=== PATIENT | female | born 1980 | race Caucasian/White ===

== ENCOUNTER 2018-12-06 10:43 | Observation (INO) ==
--- NOTE | 2018-12-06 11:39 | Emergency Department Note ---
Disposition Clinical Impression: Left renal stone, Left flank pain UTI (urinary tract infection) Qualifiers: Urinary tract infection type: site unspecified Hematuria presence: with hematuria Qualified Code(s): N39.0 - Urinary tract infection, site not specified Disposition: Admitted As Inpatient Condition: Undetermined Referrals: Monica Hunter CNP [Primary Care Provider] - Forms: ED Satisfaction Letter Time of Disposition: 13:15 Back Pain HPI - General Chief Complaint: ED Back Pain/Injury Stated Complaint: Back Pain Time Seen by Provider: 12/06/18 11:19 Source: patient Mode of arrival: private vehicle Limitations: no limitations Nursing Notes Reviewed: Yes Vital Signs Reviewed: Yes - History of Present Illness HPI Narrative: Patient is a 38 year old female with past medical history of kidney stone, presenting with chief complaint of left flank pain. States she woke up this morning with left low back pain, radiating into the side and left groin. Pain is constant dull and has waves of sharp pain. She has nausea but no vomiting. She cannot find a position of comfort. She took ibuprofen without improvement. Normal BM. Denies fevers, dysuria, hematuria, vaginal discharge. - Related Data Home Medications Medication Instructions Recorded Confirmed Minocycline [Minocin] 100 mg PO ONCE PRN 12/06/18 12/06/18 Propranolol [Inderal] 10 mg PO ONCE 12/06/18 12/06/18 Allergies Allergy/AdvReac Type Severity Reaction Status Date / Time Erythromycin Base Allergy See Verified 12/06/18 10:48 Comments All systems ED: reviewed and negative except as stated. Review of Systems: As Per HPI Constitutional: Denies: fever, chills Cardiovascular: Denies: chest pain, palpitations Respiratory: Denies: cough, dyspnea Gastrointestinal: Reports: abdominal pain, nausea. Denies: vomiting, diarrhea Genitourinary: Denies: dysuria, hematuria Musculoskeletal: Reports: back pain Neurological: Denies: headache, weakness Past Medical History - Past Medical History Attestation: Yes The following information was validated with the patient. Source: patient Medical history: Reports: kidney stones Psychiatric history: Reports: no psych history - Social History Smoking Status: Never smoker Alcohol use: Reports: none Drug use: Reports: none Physical Exam - General Limitations: no limitations General appearance: alert, in no apparent distress - Head Head exam: atraumatic, normocephalic - Eye Eye exam: Present: normal appearance, EOMI - ENT ENT exam: normal exam, normal oropharynx - Neck Neck exam: Present: normal inspection, trachea midline - Chest Chest inspection: Present: normal inspection, symmetric chest wall rise - Respiratory Respiratory exam: Present: normal lung sounds bilaterally. Absent: respiratory distress, wheezes - Cardiovascular Cardiovascular exam: Present: regular rate, normal rhythm, normal heart sounds - Abdominal Exam Abdominal exam: Present: soft, Non-Tender. Absent: distention, guarding, rebound - Extremities Exam Extremities exam: Present: normal inspection, normal capillary refill - Back Exam Back exam: Present: CVA tenderness (L) - Neurological Exam Neurological exam: Present: alert, oriented X3 - Psychiatric Psychiatric exam: Present: normal affect, normal mood - Skin Skin exam: Present: warm, dry. Absent: diaphoresis, pallor Course Vital Signs Temperature 98.5 F 12/06/18 10:46 Pulse Rate 89 12/06/18 10:46 Respiratory Rate 16 12/06/18 10:46 Blood Pressure 166/103 12/06/18 10:46 O2 Sat by Pulse Oximetry 99 12/06/18 10:46 Temperature 98.5 F 12/06/18 10:46 Pulse Rate 71 12/06/18 12:53 Respiratory Rate 16 12/06/18 12:53 Blood Pressure 158/88 12/06/18 12:53 O2 Sat by Pulse Oximetry 100 12/06/18 12:53 Oxygen Delivery Oxygen Delivery Room Air Back Pain/Injury - MDM Narrative Medical decision making narrative: Patient is presenting with left flank pain. Suspect that the patient has a kidney stone. We will evaluate further and obtain urinalysis, CBC, BMP, CT abdomen and pelvis without IV or oral contrast. We will initially give the patient Toradol and Zofran for symptoms and reevaluate. 12:30 Patient has leukocytosis. She is afebrile. Normal BUN and creatinine. CT results shows a 6mm obstructing calculus at the left uteropelvic junction causing mild hydronephrosis. She also has bilateral nonobstructing nephrolithiasis up to 5mm. She also has a urinary tract infection. Blood cultures will be obtained. She will be given a dose of IV Rocephin, IV fluids. We will give her fentanyl for pain. Urology paged for consultation and will admit to hospitalist. 12:35 Discussed with Urology, Dr. Davis who is agreeable to plan of care. Hospitalist paged for admission. 13:[address] Vargas, hospitalist, who accepts admission. - Medical Records Medical records reviewed: Yes I reviewed the patient's medical records. - Lab Data Lab results reviewed: Yes I reviewed the patient's lab results. Result diagrams: 12/06/18 11:25 12/06/18 11:25 Lab Results 12/06/18 12/06/18 12/06/18 Range/Units 11:25 11:25 11:25 WBC 12.1 H (4.3-11.1) K/mcL RBC 5.07 H (3.82-4.97) M/mcL Hgb 15.1 (11.5-15.4) g/dL Hct 44.9 (35.3-44.9) % MCV 88.6 (83.0-100.0) fL MCH 29.8 (28.0-33.3) pg MCHC 33.6 (31.6-35.5) g/dL RDW 11.9 (11.5-14.5) % Plt Count 249 (140-400) K/mcL MPV 11.4 (9.4-12.4) fL Immature Gran % 0.4 (0-4) % Seg Neutrophils % 89.6 % Lymphocytes % 7.1 % Monocytes % 2.3 % Eosinophils % 0.1 % Basophils % 0.5 % Neutrophils # 10.8 H (1.6-8.9) K/mcL Lymphocytes # 0.9 (0.6-4.6) K/mcL Monocytes # 0.3 (0.0-1.3) K/mcL Eosinophils # 0.0 (0.0-0.6) K/mcL Basophils # 0.1 (0.0-0.2) K/mcL Sodium (136-145) mEq/L Potassium (3.5-5.1) mEq/L Chloride (98-107) mEq/L Carbon Dioxide (23-29) mEq/L BUN (6-20) mg/dL Creatinine (0.60-1.20) mg/dL Est GFR ( Amer) (> 60) Est GFR (Non-Af Amer) (> 60) BUN/Creatinine Ratio (6-26) Glucose (70-105) mg/dL Calculated Osmolality (280-300) Calcium (8.6-10.3) mg/dL Urine Color Yellow (Yellow) Urine Clarity Cloudy A (Clear) Urine pH 5.5 (5.0-8.0) pH Units Ur Specific [place] 1.023 (1.010-1.025) Urine Protein Trace (Neg-Trace) mg/dL Urine Glucose (UA) Normal (Normal) mg/dL Urine Ketones Trace H (Negative) mg/dL Urine Blood Large H (Negative) Urine Nitrite Negative (Negative) Urine Bilirubin Negative (Negative) Urine Urobilinogen Normal (Normal) mg/dL Ur Leukocyte Esterase Moderate H (Negative) Urine Microscopic RBC TNTC H (0-3) per hpf Urine Microscopic WBC 15-30 H (0-3) per hpf Ur Squamous Epith Cells Many H (None-Few) per lpf Urine Bacteria Moderate H (None-Few) per hpf Hyaline Casts None Seen (None-Few) per lpf Ur Culture Indicated? YES A (NO) Urine Test Negative (Negative) 12/06/18 Range/Units 11:25 WBC (4.3-11.1) K/mcL RBC (3.82-4.97) M/mcL Hgb (11.5-15.4) g/dL Hct (35.3-44.9) % MCV (83.0-100.0) fL MCH (28.0-33.3) pg MCHC (31.6-35.5) g/dL RDW (11.5-14.5) % Plt Count (140-400) K/mcL MPV (9.4-12.4) fL Immature Gran % (0-4) % Seg Neutrophils % % Lymphocytes % % Monocytes % % Eosinophils % % Basophils % % Neutrophils # (1.6-8.9) K/mcL Lymphocytes # (0.6-4.6) K/mcL Monocytes # (0.0-1.3) K/mcL Eosinophils # (0.0-0.6) K/mcL Basophils # (0.0-0.2) K/mcL Sodium 135 L (136-145) mEq/L Potassium 4.2 (3.5-5.1) mEq/L Chloride 106 (98-107) mEq/L Carbon Dioxide 26 (23-29) mEq/L BUN 14 (6-20) mg/dL Creatinine 0.74 (0.60-1.20) mg/dL Est GFR ( Amer) > 60 (> 60) Est GFR (Non-Af Amer) > 60 (> 60) BUN/Creatinine Ratio 19 (6-26) Glucose 147 H (70-105) mg/dL Calculated Osmolality 283 (280-300) Calcium 9.8 (8.6-10.3) mg/dL Urine Color (Yellow) Urine Clarity (Clear) Urine pH (5.0-8.0) pH Units Ur Specific [place] (1.010-1.025) Urine Protein (Neg-Trace) mg/dL Urine Glucose (UA) (Normal) mg/dL Urine Ketones (Negative) mg/dL Urine Blood (Negative) Urine Nitrite (Negative) Urine Bilirubin (Negative) Urine Urobilinogen (Normal) mg/dL Ur Leukocyte Esterase (Negative) Urine Microscopic RBC (0-3) per hpf Urine Microscopic WBC (0-3) per hpf Ur Squamous Epith Cells (None-Few) per lpf Urine Bacteria (None-Few) per hpf Hyaline Casts (None-Few) per lpf Ur Culture Indicated? (NO) Urine Test (Negative) - Radiology Data Radiology results reviewed: Yes I reviewed the patient's radiology results. Abdomen/Pelvis CT 12/06/18 11:41 IMPRESSION: 1. There is a 6 mm obstructing calculus at the left uteropelvic junction causing mild hydronephrosis. 2. Bilateral nonobstructing nephrolithiasis up to 5 mm in size more pronounced on the left side. 3. Hepatic steatosis. D/ / Raul Dawn MD / Raul Dawn MD Interpreting Provider: Raul Dawn MD
[2018-12-06] MEDS ORDERED: Ondansetron 4 MG/2 ML VIAL IVP ONE (11:40)
[2018-12-06] MEDS ORDERED: Ketorolac 15 MG/ML VIAL IM ONE ×2 (11:40→11:55)
[2018-12-06 11:46] LABS: Bilirubin,Urine Negative (Negative); Blood,Urine Large (Negative); Clarity,Urine Cloudy (Clear); Color,Urine Yellow (Yellow); Glucose,Urine (UA) Normal (Normal); Ketones,Urine Trace mg/dL (Negative); Leukocyte Esterase,Urine Moderate (Negative); Nitrite,Urine Negative (Negative); PH,Urine 5.5 pH Units (5.0-8.0); Protein,Urine Trace mg/dL (Neg-Trace); Specific Gravity,Urine 1.023 (1.010-1.025); Urobilinogen,Urine Normal (Normal)
[2018-12-06 11:48] LABS: Bacteria,Urine Moderate per hpf (None-Few); Basophils # 0.1 K/mcL (0.0-0.2); Basophils % 0.5 %; Eosinophils % 0.1 %; Hematocrit 44.9 % (35.3-44.9); Hemoglobin 15.1 g/dL (11.5-15.4); Hyaline Casts,Urine None Seen per lpf (None-Few); Immature Granulocytes % 0.4 % (0-4); Lymphocytes # 0.9 K/mcL (0.6-4.6); Lymphocytes % 7.1 %; Mean Corpuscular HGB Conc 33.6 g/dL (31.6-35.5); Mean Corpuscular Hemoglobin 29.8 pg (28.0-33.3); Mean Corpuscular Volume 88.6 fL (83.0-100.0); Mean Platelet Volume 11.4 fL (9.4-12.4); Monocytes # 0.3 K/mcL (0.0-1.3); Monocytes % 2.3 %; Neutrophils # 10.8 K/mcL (1.6-8.9); Platelet Count 249 K/mcL (140-400); RBC,Urine TNTC per hpf (0-3); Red Blood Count 5.07 M/mcL (3.82-4.97); Red Cell Distribution Width 11.9 % (11.5-14.5); Segmented Neutrophils % 89.6 %; Squamous Epithelial Cell,Urine Many per lpf (None-Few); WBC,Urine 15-30 per hpf (0-3); White Blood Count 12.1 K/mcL (4.3-11.1)
[2018-12-06] MEDS ORDERED: Ketorolac 30 MG/ML VIAL IVP ONE (11:56)
[2018-12-06 12:07] LABS: BUN/Creatinine Ratio 19 (6-26); Blood Urea Nitrogen 14 mg/dL (6-20); Calcium 9.8 mg/dL (8.6-10.3); Carbon Dioxide 26 mEq/L (23-29); Chloride 106 mEq/L (98-107); Glucose 147 mg/dL (70-105); Osmolality,Calculated 283 (280-300); Potassium 4.2 mEq/L (3.5-5.1); Sodium 135 mEq/L (136-145); eGFR For African Americans > 60 (> 60); eGFR For Non-African Americans > 60 (> 60)
--- NOTE | 2018-12-06 12:25 | Emergency Department Note ---
Disposition Clinical Impression: Left renal stone, Left flank pain UTI (urinary tract infection) Qualifiers: Urinary tract infection type: site unspecified Hematuria presence: with hematuria Qualified Code(s): N39.0 - Urinary tract infection, site not specified Disposition: Admitted As Inpatient Condition: Undetermined Time of Disposition: 13:15 General Adult HPI - General Chief complaint: ED Back Pain/Injury Stated complaint: Back Pain Time Seen by Provider: 12/06/18 11:19 Source: patient Mode of arrival: private vehicle Limitations: no limitations Nursing Notes Reviewed: Yes Vital Signs Reviewed: Yes - History of Present Illness Pain Scale: 10 - Related Data Home Medications Medication Instructions Recorded Confirmed Minocycline [Minocin] 100 mg PO ONCE PRN 12/06/18 12/06/18 Propranolol [Inderal] 10 mg PO ONCE 12/06/18 12/06/18 Allergies Allergy/AdvReac Type Severity Reaction Status Date / Time Erythromycin Base Allergy See Verified 12/06/18 10:48 Comments Constitutional: Denies: fever, chills Cardiovascular: Denies: chest pain, palpitations Past Medical History - Past Medical History Medical history: Reports: kidney stones Psychiatric history: Reports: no psych history - Social History Smoking Status: Never smoker Alcohol use: Reports: none Drug use: Reports: none Physical Exam - General Limitations: no limitations General appearance: alert, in no apparent distress Course Vital Signs Temperature 98.5 F 12/06/18 10:46 Pulse Rate 89 12/06/18 10:46 Respiratory Rate 16 12/06/18 10:46 Blood Pressure 166/103 12/06/18 10:46 O2 Sat by Pulse Oximetry 99 12/06/18 10:46 Temperature 98.5 F 12/06/18 10:46 Pulse Rate 86 12/06/18 13:30 Respiratory Rate 16 12/06/18 13:30 Blood Pressure 131/76 12/06/18 13:30 O2 Sat by Pulse Oximetry 96 12/06/18 13:30 Oxygen Delivery Oxygen Delivery Room Air Medical Decision Making - Lab Data Result diagrams: 12/06/18 11:25 12/06/18 11:25 Lab Results 12/06/18 12/06/18 12/06/18 Range/Units 11:25 11:25 11:25 WBC 12.1 H (4.3-11.1) K/mcL RBC 5.07 H (3.82-4.97) M/mcL Hgb 15.1 (11.5-15.4) g/dL Hct 44.9 (35.3-44.9) % MCV 88.6 (83.0-100.0) fL MCH 29.8 (28.0-33.3) pg MCHC 33.6 (31.6-35.5) g/dL RDW 11.9 (11.5-14.5) % Plt Count 249 (140-400) K/mcL MPV 11.4 (9.4-12.4) fL Immature Gran % 0.4 (0-4) % Seg Neutrophils % 89.6 % Lymphocytes % 7.1 % Monocytes % 2.3 % Eosinophils % 0.1 % Basophils % 0.5 % Neutrophils # 10.8 H (1.6-8.9) K/mcL Lymphocytes # 0.9 (0.6-4.6) K/mcL Monocytes # 0.3 (0.0-1.3) K/mcL Eosinophils # 0.0 (0.0-0.6) K/mcL Basophils # 0.1 (0.0-0.2) K/mcL Sodium (136-145) mEq/L Potassium (3.5-5.1) mEq/L Chloride (98-107) mEq/L Carbon Dioxide (23-29) mEq/L BUN (6-20) mg/dL Creatinine (0.60-1.20) mg/dL Est GFR ( Amer) (> 60) Est GFR (Non-Af Amer) (> 60) BUN/Creatinine Ratio (6-26) Glucose (70-105) mg/dL Calculated Osmolality (280-300) Calcium (8.6-10.3) mg/dL Urine Color Yellow (Yellow) Urine Clarity Cloudy A (Clear) Urine pH 5.5 (5.0-8.0) pH Units Ur Specific [place] 1.023 (1.010-1.025) Urine Protein Trace (Neg-Trace) mg/dL Urine Glucose (UA) Normal (Normal) mg/dL Urine Ketones Trace H (Negative) mg/dL Urine Blood Large H (Negative) Urine Nitrite Negative (Negative) Urine Bilirubin Negative (Negative) Urine Urobilinogen Normal (Normal) mg/dL Ur Leukocyte Esterase Moderate H (Negative) Urine Microscopic RBC TNTC H (0-3) per hpf Urine Microscopic WBC 15-30 H (0-3) per hpf Ur Squamous Epith Cells Many H (None-Few) per lpf Urine Bacteria Moderate H (None-Few) per hpf Hyaline Casts None Seen (None-Few) per lpf Ur Culture Indicated? YES A (NO) Urine Test Negative (Negative) 12/06/18 Range/Units 11:25 WBC (4.3-11.1) K/mcL RBC (3.82-4.97) M/mcL Hgb (11.5-15.4) g/dL Hct (35.3-44.9) % MCV (83.0-100.0) fL MCH (28.0-33.3) pg MCHC (31.6-35.5) g/dL RDW (11.5-14.5) % Plt Count (140-400) K/mcL MPV (9.4-12.4) fL Immature Gran % (0-4) % Seg Neutrophils % % Lymphocytes % % Monocytes % % Eosinophils % % Basophils % % Neutrophils # (1.6-8.9) K/mcL Lymphocytes # (0.6-4.6) K/mcL Monocytes # (0.0-1.3) K/mcL Eosinophils # (0.0-0.6) K/mcL Basophils # (0.0-0.2) K/mcL Sodium 135 L (136-145) mEq/L Potassium 4.2 (3.5-5.1) mEq/L Chloride 106 (98-107) mEq/L Carbon Dioxide 26 (23-29) mEq/L BUN 14 (6-20) mg/dL Creatinine 0.74 (0.60-1.20) mg/dL Est GFR ( Amer) > 60 (> 60) Est GFR (Non-Af Amer) > 60 (> 60) BUN/Creatinine Ratio 19 (6-26) Glucose 147 H (70-105) mg/dL Calculated Osmolality 283 (280-300) Calcium 9.8 (8.6-10.3) mg/dL Urine Color (Yellow) Urine Clarity (Clear) Urine pH (5.0-8.0) pH Units Ur Specific [place] (1.010-1.025) Urine Protein (Neg-Trace) mg/dL Urine Glucose (UA) (Normal) mg/dL Urine Ketones (Negative) mg/dL Urine Blood (Negative) Urine Nitrite (Negative) Urine Bilirubin (Negative) Urine Urobilinogen (Normal) mg/dL Ur Leukocyte Esterase (Negative) Urine Microscopic RBC (0-3) per hpf Urine Microscopic WBC (0-3) per hpf Ur Squamous Epith Cells (None-Few) per lpf Urine Bacteria (None-Few) per hpf Hyaline Casts (None-Few) per lpf Ur Culture Indicated? (NO) Urine Test (Negative) Attestation Statement - Attestation Attestation: I examined this patient and my medical decision-making was reviewed with the Resident Physician. I agree with the documented findings, disposition and treatment plan as described except to the extent set forth below. Patient to the ED with a chief flank pain. Onset today. History kidney stones and this feels similar. No dysuria. No hematuria. No fever. On exam she appears uncomfortable left CVA tenderness. No overlying rash. Plan. Urine, labs, CT. Patient with mild leukocytosis at 12. She has moderate leukocytes, bacteria, and white blood cells in her urine. She is a 6 mm obstructing sternum. She received Rocephin, a urology consult, and admission. Patient is admitted to medicine. Abdomen/Pelvis CT 12/06/18 11:41 IMPRESSION: 1. There is a 6 mm obstructing calculus at the left uteropelvic junction causing mild hydronephrosis. 2. Bilateral nonobstructing nephrolithiasis up to 5 mm in size more pronounced on the left side. 3. Hepatic steatosis. D/ / Raul Dawn MD / Raul Dawn MD Interpreting Provider: Raul Dawn MD
[2018-12-06] MEDS ORDERED: cefTRIAXone 1,000 MG in Water for inj. (sterile) 10 ML IVP ONE (12:31)
[2018-12-06] MEDS ORDERED: 0.9 % Sodium Chloride 1,000 ML IVC ONE (12:31)
[2018-12-06] MEDS ORDERED: *HR* FentaNYL (PF) 100 MCG/2 ML VIAL IVP ONE (12:31)
--- NOTE | 2018-12-06 14:11 | Internal Med History&Physical ---
Date of Encounter: 12/06/18 Time of Encounter: 14:11 Internal Medicine - H&P: HPI Chief complaint: L flank pain Admitted From: Emergency Dept Plans for Post Hospital Care: Home History of present illness: Ms. Taylor is a 38 year old female medical history of migraine and one other episode of kidney stone-patient presented to [facility] ED with 1 day history of left flank pain radiating to her left groin-describing as constant dull wavelike into sharp pain with nausea no vomiting. CT of abdomen and pelvis was obtained which revealed a 6 mm left proximal ureteral stone at the UPJ with mild hydronephrosis. Prior to this episode patient was in her normal state of health Urinalysis was indicative of a UTI no white count no fevers denies any hematuria or dysuria fevers or chills. She has been admitted for further workup and evaluation of ureteral stone. Currently patient does complain of some mild left flank pain. Does not appear to be in any distress at this time Past Med Surg Social Fam HX - Past Medical History Medical history: kidney stones Psychiatric history: no psych history - Social History Smoking Status: Never smoker Alcohol use: none Drug use: none - Family History Mother Living Status: Cause of : cancer Father Living Status: Still Living Hx Family Genitourinary Disorders: Yes (kidney stones) Internal Medicine - H&P: Meds Minocycline [Minocin] 100 mg PO ONCE PRN 12/06/18 [History] Propranolol [Inderal] 10 mg PO ONCE 12/06/18 [History] Allergy/AdvReac Type Severity Reaction Status Date / Time Erythromycin Base Allergy See Verified 12/06/18 10:48 Comments All Systems PM: A 10-system review of systems was performed and is negative for pertinent fi ndings except as documented above in the HPI. - Constitutional Constitutional: no chills, no fever(s), no night sweats - EENT Eyes: no change in vision, no discharge, no pain, no photophobia Ears: no ear discharge, no ear pain, no tinnitus Nose, mouth and throat: no dysphagia, no nasal discharge, no neck pain, no sore throat - Cardiovascular Cardiovascular ROS IM: no chest pain, no diaphoresis, no dyspnea, no lightheadedness, no palpitations, no syncope - Respiratory Respiratory: no cough, no dyspnea, no wheezing, no excessive phlegm production - Gastrointestinal Gastrointestinal: no abdominal pain, no diarrhea, no hematemesis, no hematochezia, no melena, no nausea, no vomiting - Genitourinary Genitourinary: no change in urinary stream, no dysuria, no flank pain, no hematuria - Musculoskeletal Musculoskeletal ROS IM: no numbness, no tingling - Integumentary Integumentary IM: no rash, no unusual bruising - Neurological Neurological ROS: no confusion, no convulsions, no focal weakness, no numbness, no tingling, no tremor(s) - Hematologic/Lymphatic Hematologic/Lymphatic: no easy bruising - Constitutional Vitals: Temp Pulse Resp BP Pulse Ox 98.5 F 86 16 131/76 96 12/06/18 10:46 12/06/18 13:30 12/06/18 13:30 12/06/18 13:30 12/06/18 13:30 Exam: Skin: Free of rash and discoloration. Eyes: Sclera is white. There is no discharge from eyes. ENMT: Oral/pharyngeal mucosa is normal in appearance. There is no discharge from nose or ears. Respiratory: Normal breath sounds with no crackles and wheezes bilaterally. CV: Heart is regular with no gallop or murmur. GI: Abdomen is flat and soft with no palpable mass or visceromegaly. : There is no tenderness in patient's flanks bilaterally. Neuro exam: He has good strength in upper and lower extremities. He has normal eye movements. Psychiatric: He has normal affect. His thought process is appropriate to the situation. Internal Med - H&P Results - Labs CBC & Chem 7: 12/06/18 11:25 12/06/18 11:25 Labs: Short CBC 12/06/18 Range/Units 11:25 WBC 12.1 H (4.3-11.1) K/mcL Hgb 15.1 (11.5-15.4) g/dL Hct 44.9 (35.3-44.9) % Plt Count 249 (140-400) K/mcL Neutrophils # 10.8 H (1.6-8.9) K/mcL BMP 12/06/18 11:25 Sodium 135 L Potassium 4.2 Chloride 106 Carbon Dioxide 26 BUN 14 Creatinine 0.74 Glucose 147 H Calcium 9.8 Urine 12/06/18 Range/Units 11:25 Urine Color Yellow (Yellow) Urine Clarity Cloudy A (Clear) Urine pH 5.5 (5.0-8.0) pH Units Ur Specific [place] 1.023 (1.010-1.025) Urine Protein Trace (Neg-Trace) mg/dL Urine Glucose (UA) Normal (Normal) mg/dL - Impressions ITS Impressions Abdomen/Pelvis CT 12/06/18 11:41 IMPRESSION: 1. There is a 6 mm obstructing calculus at the left uteropelvic junction causing mild hydronephrosis. 2. Bilateral nonobstructing nephrolithiasis up to 5 mm in size more pronounced on the left side. 3. Hepatic steatosis. D/ / Raul Dawn MD / Raul Dawn MD Interpreting Provider: Raul Dawn MD - Assessment and Plan (1) DVT prophylaxis Current Visit: Yes Status: Acute Assessment and plan: Patient is ambulatory (2) Left flank pain Current Visit: Yes Status: Acute Assessment and plan: Since onset of left flank pain secondary to ureteral stone Continue with Toradol as well as oxycodone as needed (3) Obstruction of left ureteropelvic junction (UPJ) due to stone Current Visit: Yes Status: Acute Assessment and plan: Patient presented with sudden onset of left flank pain CT of abdomen and pelvis or 6 mm left proximal ureteral stone with mild hydronephrosis. Continue with IV fluids Nothing by mouth at this time pending For Brandon undergo cystoscopy left retropyelogram and left ureteral stent placement later this evening with Dr. Davis Continue with pain management of Toradol and oxycodone (4) UTI (urinary tract infection) Current Visit: Yes Status: Acute Assessment and plan: Analysis indicative of UTI urine sent for culture continue with Rocephin no fevers no white count this time Qualifiers: Urinary tract infection type: site unspecified Hematuria presence: with hematuria Qualified Code(s): N39.0 - Urinary tract infection, site not specified; R31.9 - Hematuria, unspecified - Time Spent With Patient Total time spent is greater than 50% in coordination of care (as documented) at patient's floor/unit and/or counseling patient:
[2018-12-06] MEDS ORDERED: Naloxone 0.4 MG/ML INJ IVP PRN (14:16)
[2018-12-06] MEDS ORDERED: Ondansetron 4 MG/2 ML VIAL IVP PRN (14:16)
--- NOTE | 2018-12-06 15:13 | Urology - Consult Note ---
<Wendie Castro N - Last Filed: 12/06/18 15:10> Date of Encounter: 12/06/18 Time of Encounter: 14:40 - Assessment and Plan (1) Obstruction of left ureteropelvic junction (UPJ) due to stone Current Visit: Yes Status: Acute Assessment and plan: Patient is a 38-year-old female who presents with a 6 mm left UPJ stone and mild hydronephrosis. Vital signs are currently stable and afebrile. Blood and urine cultures have been collected, and patient has received IV Rocephin. We discussed surgical risks and benefits, and patient verbalized understanding. Patient signed consent, and she is prepared undergo a cystoscopy, left retropyelogram and left ureteral stent placement later this evening with Dr. Davis. Patient will remain nothing by mouth. Urology CN:HPI Consult date: 12/06/18 Reason for consult Urology: Other (Left proximal ureteral stone) Requesting physician: [place] History of present illness: Patient is a 38-year-old female who presents with a 6 mm left proximal ureteral stone and mild hydronephrosis. Patient reports a 1 day history of left flank pain that brought her to the emergency department where she underwent a CT of the abdomen and pelvis revealing a 6 mm left proximal ureteral stone at the UPJ with mild hydronephrosis. Patient states she has a history of renal stones, with her last stone occurring greater than 10 years ago. Patient states she passed the stone by medical expulsion. Patient admits to a family history of renal stones through her father. Currently, patient is sitting upright in bed in no apparent distress, and she denies any fever, chills, dysuria or gross hematuria. Past Med Surg Social Fam HX - Past Medical History Medical history: kidney stones Psychiatric history: no psych history - Past Surgical History Surgical History: no surgical history - Social History Smoking Status: Never smoker Alcohol use: none Drug use: none - Family History Father Hx Family Genitourinary Disorders: Yes (renal stones ) Medications and Allergies Minocycline [Minocin] 100 mg PO ONCE PRN 12/06/18 [History] Propranolol [Inderal] 10 mg PO ONCE 12/06/18 [History] Allergy/AdvReac Type Severity Reaction Status Date / Time Erythromycin Base Allergy See Verified 12/06/18 10:48 Comments Review of Systems - Constitutional no chills, no fatigue, no fever(s) - EENT Nose, mouth and throat: no dizziness, no headache(s) - Cardiovascular no chest pain, no diaphoresis, no dyspnea - Respiratory no cough, no dyspnea - Gastrointestinal abdominal pain, nausea, no vomiting - Genitourinary Genitourinary: flank pain, no difficulty voiding, no dysuria, no hematuria, no urinary frequency, no urinary hesitancy, no urinary incontinence, no urinary urgency - Musculoskeletal back pain, no muscle weakness - Integumentary no erythema, no rash - Neurological no confusion, no syncope - Psychiatric no anxiety, no confusion - Hematologic/Lymphatic no easy bleeding, no easy bruising - Allergic/Immunologic no throat swelling, no wheezing Exam Initial Vital Signs Temp Pulse Resp BP Pulse Ox 98.5 F 89 16 166/103 99 12/06/18 10:46 12/06/18 10:46 12/06/18 10:46 12/06/18 10:46 12/06/18 10:46 - General physical appearance Present: well developed, no distress, no pain - Eyes Present: PERRL, normal ocular movement - ENT Present: normal nares, no hearing loss, no congestion - Neck Present: no masses, trachea midline, no lymphadenopathy - Respiratory Present: normal respiratory effort - Cardiovascular Cardiovascular exam IM: RRR - Abdomen Abdomen: Present: soft, non tender. Absent: distended - Genitourinary Present: other (No CVAT) - Integumentary Present: no rash, no abnormal pigmentation - Neurologic Present: normal coordination - Musculoskeletal Present: other (Normal posture, no pedal edema) Urology Results - Labs 12/06/18 11:25 12/06/18 11:25 Abnormal lab results WBC 12.1 K/mcL (4.3-11.1) H 12/06/18 11:25 RBC 5.07 M/mcL (3.82-4.97) H 12/06/18 11:25 Neutrophils # 10.8 K/mcL (1.6-8.9) H 12/06/18 11:25 Sodium 135 mEq/L (136-145) L 12/06/18 11:25 Glucose 147 mg/dL (70-105) H 12/06/18 11:25 Urine Clarity Cloudy (Clear) A 12/06/18 11:25 Urine Ketones Trace mg/dL (Negative) H 12/06/18 11:25 Urine Blood Large (Negative) H 12/06/18 11:25 Ur Leukocyte Esterase Moderate (Negative) H 12/06/18 11:25 Urine Microscopic RBC TNTC per hpf (0-3) H 12/06/18 11:25 Urine Microscopic WBC 15-30 per hpf (0-3) H 12/06/18 11:25 Ur Squamous Epith Cells Many per lpf (None-Few) H 12/06/18 11:25 Urine Bacteria Moderate per hpf (None-Few) H 12/06/18 11:25 Ur Culture Indicated? YES (NO) A 12/06/18 11:25 Diabetes panel 12/06/18 Range/Units 11:25 Sodium 135 L (136-145) mEq/L Potassium 4.2 (3.5-5.1) mEq/L Chloride 106 (98-107) mEq/L Carbon Dioxide 26 (23-29) mEq/L BUN 14 (6-20) mg/dL Creatinine 0.74 (0.60-1.20) mg/dL Glucose 147 H (70-105) mg/dL Calcium 9.8 (8.6-10.3) mg/dL Calcium panel 12/06/18 Range/Units 11:25 Calcium 9.8 (8.6-10.3) mg/dL Pituitary panel 12/06/18 Range/Units 11:25 Sodium 135 L (136-145) mEq/L Potassium 4.2 (3.5-5.1) mEq/L Chloride 106 (98-107) mEq/L Carbon Dioxide 26 (23-29) mEq/L BUN 14 (6-20) mg/dL Creatinine 0.74 (0.60-1.20) mg/dL Glucose 147 H (70-105) mg/dL Calcium 9.8 (8.6-10.3) mg/dL Adrenal panel 12/06/18 Range/Units 11:25 Sodium 135 L (136-145) mEq/L Potassium 4.2 (3.5-5.1) mEq/L Chloride 106 (98-107) mEq/L Carbon Dioxide 26 (23-29) mEq/L BUN 14 (6-20) mg/dL Creatinine 0.74 (0.60-1.20) mg/dL Glucose 147 H (70-105) mg/dL Calcium 9.8 (8.6-10.3) mg/dL All other labs normal. - Imaging CT scan - abdomen: report reviewed, image reviewed CT scan - pelvis: report reviewed, image reviewed Consult Discharge Plan - Plan Referrals: Monica Hunter, CHILD DAY CARE PROVIDER [Primary Care Provider] - <Adal Davisabdulaziz Morris - Last Filed: 12/06/18 17:24> Date of Encounter: 12/06/18 - Assessment and Plan (1) Hydronephrosis, left Current Visit: Yes Status: Acute Assessment and plan: Significant hydronephrosis with intermittent pain requiring hospital admission. This is due to proximal ureteral obstruction. Questionable urine without nitrite positivity. Discussed indication for urinary diversion. Plan: Stent placement for urinary diversion in OR today. Okay for discharge from urologic standpoint post placement of stent. (2) Bilateral nephrolithiasis Current Visit: Yes Status: Acute Assessment and plan: Patient reports she has passed one prior stone. Her CT shows at least 12 small stones on the left and 3 or 4 small stones on the right. Additionally she has a 6 mm stone at the left UPJ. Patient will be diverted with stent placements day. Plan: Follow-up as outpatient for definitive management of stones as well as preventative evaluation. (3) Left ureteral calculus Current Visit: Yes Status: Acute Assessment and plan: 6 mm UPJ calculus. Given presence of other stone staged address by lithotripsy is appropriate. Plan: Stent placement for diversion today. Stage address by lithotripsy in the coming weeks. Exam Initial Vital Signs Temp Pulse Resp BP Pulse Ox 98.5 F 89 16 166/103 99 12/06/18 10:46 12/06/18 10:46 12/06/18 10:46 12/06/18 10:46 12/06/18 10:46 Urology Results - Labs 12/06/18 11:25 12/06/18 11:25 Abnormal lab results WBC 12.1 K/mcL (4.3-11.1) H 12/06/18 11:25 RBC 5.07 M/mcL (3.82-4.97) H 12/06/18 11:25 Neutrophils # 10.8 K/mcL (1.6-8.9) H 12/06/18 11:25 Sodium 135 mEq/L (136-145) L 12/06/18 11:25 Glucose 147 mg/dL (70-105) H 12/06/18 11:25 Urine Clarity Cloudy (Clear) A 12/06/18 11:25 Urine Ketones Trace mg/dL (Negative) H 12/06/18 11:25 Urine Blood Large (Negative) H 12/06/18 11:25 Ur Leukocyte Esterase Moderate (Negative) H 12/06/18 11:25 Urine Microscopic RBC TNTC per hpf (0-3) H 12/06/18 11:25 Urine Microscopic WBC 15-30 per hpf (0-3) H 12/06/18 11:25 Ur Squamous Epith Cells Many per lpf (None-Few) H 12/06/18 11:25 Urine Bacteria Moderate per hpf (None-Few) H 12/06/18 11:25 Ur Culture Indicated? YES (NO) A 12/06/18 11:25 Diabetes panel 12/06/18 Range/Units 11:25 Sodium 135 L (136-145) mEq/L Potassium 4.2 (3.5-5.1) mEq/L Chloride 106 (98-107) mEq/L Carbon Dioxide 26 (23-29) mEq/L BUN 14 (6-20) mg/dL Creatinine 0.74 (0.60-1.20) mg/dL Glucose 147 H (70-105) mg/dL Calcium 9.8 (8.6-10.3) mg/dL Calcium panel 12/06/18 Range/Units 11:25 Calcium 9.8 (8.6-10.3) mg/dL Pituitary panel 12/06/18 Range/Units 11:25 Sodium 135 L (136-145) mEq/L Potassium 4.2 (3.5-5.1) mEq/L Chloride 106 (98-107) mEq/L Carbon Dioxide 26 (23-29) mEq/L BUN 14 (6-20) mg/dL Creatinine 0.74 (0.60-1.20) mg/dL Glucose 147 H (70-105) mg/dL Calcium 9.8 (8.6-10.3) mg/dL Adrenal panel 12/06/18 Range/Units 11:25 Sodium 135 L (136-145) mEq/L Potassium 4.2 (3.5-5.1) mEq/L Chloride 106 (98-107) mEq/L Carbon Dioxide 26 (23-29) mEq/L BUN 14 (6-20) mg/dL Creatinine 0.74 (0.60-1.20) mg/dL Glucose 147 H (70-105) mg/dL Calcium 9.8 (8.6-10.3) mg/dL All other labs normal.
[2018-12-06] MEDS: 0.9 % Sodium Chloride 1,000 ML IVC SCH (15:14)
[2018-12-06] MEDS: Ketorolac 15 MG/ML VIAL IVP PRN ×2 (15:21→23:28)
[2018-12-06] MEDS ORDERED: Isovue-300 50 ML VIAL ONE (16:48)
--- NOTE | 2018-12-06 17:00 | Anesthesia Evaluation PreOp ---
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 History: Other (migraine ZAYAS's) Other Medical History: Renal (kidney stones) Anesthesia History: Past Anesthesia (no prior GA) Test: Negative (12/06/2018) Alcohol Use: none Drug use: none Medications and Allergies Minocycline [Minocin] 100 mg PO ONCE PRN 12/06/18 [History] Propranolol [Inderal] 10 mg PO ONCE 12/06/18 [History] Allergy/AdvReac Type Severity Reaction Status Date / Time Erythromycin Base Allergy See Verified 12/06/18 10:48 Comments - Meds/Allergy Pre-op Review Medications Reviewed: Yes Allergies Reviewed: Yes Beta Blockers on Current Med List: Yes (for migraine ZAYAS's) Anesthesia Results - Labs 12/06/18 11:25 12/06/18 11:25 Laboratory Tests 12/06/18 11:25 Urine Test Negative Anesthesia Exam Vital Signs/O2 Sat, Most Current Temp Pulse Resp BP Pulse Ox 98.8 F 77 15 148/86 98 12/06/18 15:28 12/06/18 15:28 12/06/18 15:28 12/06/18 15:28 12/06/18 15:28 Height: 5'7''/1.7m Weight: 238 lbs/108 kg NPO (# of Hours): 8 Pain Scale: 0 Pain Scale Used: Numeric (1 - 10) - HEENT Pupil (Motor): EOMI Mallampati: III Teeth: Normal Oral Opening: Greater than 3 - RADIO MACHINIST LOC: Oriented RADIO MACHINIST Motor: Normal RUE, Normal LUE, Normal RLE, Normal LLE, Normal Face RADIO MACHINIST Sensory: Normal: RUE, LUE, RLE, LLE, Face - Cardiac Rhythm: Regular Murmur: None - Pulmonary Breath Sounds: bilateral Clear Respiratory Effort: Symmetrical Anesthesia Assess/Plan ASA Score: 2 Level of consciousness: Cooperative, Oriented, Tranquil Anesthetic Plan: General Monitoring Plan: Standard Monitors Recovery Plan: PACU
[2018-12-06] MEDS ORDERED: *HR* HYDROmorphone (PF) 1 MG/ML SYRINGE IVP PRN (17:07)
[2018-12-06] MEDS ORDERED: *HR* FentaNYL (PF) 100 MCG/2 ML VIAL ONE (17:18)
[2018-12-06] MEDS ORDERED: *HR* Propofol 200 MG/20 ML VIAL IVP ONE (17:18)
[2018-12-06] MEDS ORDERED: *HR* Midazolam HCl 2 MG/2 ML VIAL ONE (17:18)
[2018-12-06] MEDS ORDERED: Lidocaine -MPF 2% 2 ML VIAL ONE (17:20)
[2018-12-06] MEDS ORDERED: Dexamethasone 4 MG/ML VIAL ONE (17:36)
[2018-12-06] MEDS ORDERED: Ondansetron 4 MG/2 ML VIAL ONE (17:36)
[2018-12-06] MEDS ORDERED: Ketorolac 30 MG/ML VIAL ONE (17:37)
[2018-12-06] MEDS ORDERED: Acetaminophen IV 1,000 MG/100 ML INFUS..BTL ONE (17:39)
--- NOTE | 2018-12-06 18:05 | Operative Note ---
Date of procedure: 12/06/18 Pre-op diagnosis: Left ureteral calculus, left hydronephrosis Post-op diagnosis: same Procedure: Cystoscopy, left retrograde ureteral pyelography, left double-J stent placement, intraoperative interpretation of all radiographic images in real time by surgeon to facilitate procedure. Implants: 6 x 26 left double-J stent Complications: none Anesthesia: GETA Surgeon: Rafa Davis Was there an advertising assistant manager present: No Estimated blood loss (cc): 0 Specimen: none Condition: stable Disposition: PACU Procedure in Detail: The patient brought to the operating theater placed on table supine position. This ended 5 by name and administered a general anesthetic. The patient placed dorsal lithotomy then prepped and draped in normal sterile fashion. A cystoscope was inserted to the urethral meatus and advanced with the bladder under direct visualization. There were no mucosal outpouchings of the urethra or bladder. An open-ended catheter was placed the tip of the left ureteral orifice and with gentle injection of contrast a left retrograde ureteropyelogram performed. The Glidewire was advanced into the upper portion of the left renal collecting system. Over the Glidewire a 6 x 26 left double-J stent was placed. Was sent was felt in the position the Glidewire was removed. The stent was confirmed in good position proximally and distally using fluoroscopy. This ended the operative procedure.
--- NOTE | 2018-12-06 18:21 | Anesthesia Evaluation Post Op ---
Date of Encounter: 12/06/18 Time of Encounter: 18:20 - Vital Signs Vital Signs: Vital Signs/O2 Sat/Glucose, Most Recent Temp Pulse Resp BP Pulse Ox 98.2 F 78 16 141/84 97 12/06/18 18:00 12/06/18 18:10 12/06/18 18:10 12/06/18 18:10 12/06/18 18:10 - Lungs Lungs: Clear Ascult./Percussion - Airway Airway: Non-obstructed - Cardiovascular Regular Rate - Mental Status Mental Status: Alert & Oriented, Answers Appropriately - Pain Pain Scale: 0 Pain Scale used: Numeric (1 - 10) - Nausea Vomiting Nausea Vomiting: Not Present - Hydration Hydration: Tolerates oral liquids - Discharge PostOp Status: Transfer Patient to floor
[2018-12-06] MEDS ORDERED: *HR* OxyCODONE Immed Rel 5 MG TABLET PO ONE (20:59)
[2018-12-07] MEDS: Ketorolac 15 MG/ML VIAL IVP PRN (05:31)
[2018-12-07] MEDS: 0.9 % Sodium Chloride 1,000 ML IVC SCH (05:34)
[2018-12-07 07:45] LABS: Basophils % 0.2 %; Hematocrit 40.4 % (35.3-44.9); Immature Granulocytes % 0.5 % (0-4); Lymphocytes # 1.1 K/mcL (0.6-4.6); Mean Corpuscular HGB Conc 32.9 g/dL (31.6-35.5); Mean Corpuscular Hemoglobin 29.8 pg (28.0-33.3); Mean Corpuscular Volume 90.4 fL (83.0-100.0); Mean Platelet Volume 11.6 fL (9.4-12.4); Monocytes # 0.6 K/mcL (0.0-1.3); Monocytes % 5.2 %; Neutrophils # 9.1 K/mcL (1.6-8.9); Platelet Count 213 K/mcL (140-400); Red Blood Count 4.47 M/mcL (3.82-4.97); Red Cell Distribution Width 11.9 % (11.5-14.5); Segmented Neutrophils % 84.1 %; White Blood Count 10.9 K/mcL (4.3-11.1)
[2018-12-07 07:48] LABS: Hemoglobin 13.3 g/dL (11.5-15.4)
[2018-12-07 08:00] VITALS: BP 148/91
[2018-12-07 08:02] LABS: BUN/Creatinine Ratio 24 (6-26); Blood Urea Nitrogen 16 mg/dL (6-20); Calcium 9.1 mg/dL (8.6-10.3); Carbon Dioxide 21 mEq/L (23-29); Chloride 109 mEq/L (98-107); Glucose 131 mg/dL (70-105); Magnesium 2.1 mg/dL (1.6-2.6); Osmolality,Calculated 289 (280-300); Potassium 4.1 mEq/L (3.5-5.1); Sodium 138 mEq/L (136-145); eGFR For African Americans > 60 (> 60); eGFR For Non-African Americans > 60 (> 60)
[2018-12-07] MEDS ORDERED: *HR* OxyCODONE/APAP 7.5/325 TABLET PO PRN (09:41)
[2018-12-07] MEDS ORDERED: cefTRIAXone 1,000 MG in Water for inj. (sterile) 10 ML IVP SCH (12:00)
--- NOTE | 2018-12-07 12:17 | Urology Progress Note ---
Date of Encounter: 12/07/18 Time of Encounter: 12:16 - Assessment and Plan (1) Hydronephrosis, left Current Visit: Yes Status: Acute (2) Bilateral nephrolithiasis Current Visit: Yes Status: Acute (3) Left ureteral calculus Current Visit: Yes Status: Acute Assessment and plan: Looks and feels well this a.m. Patient with some stent irritation. Reviewed normal healing and expectations with stent in place. Plan: My office will arrange outpatient lithotripsy as well as metabolic evaluation for stone prevention. I have provided her scripts including Percocet, tamsulosin, oxybutynin and ciprofloxacin. Hospitalist management greatly appreciated. Objective Initial Vital Signs Temp Pulse Resp BP Pulse Ox 98.5 F 89 16 166/103 99 12/06/18 10:46 12/06/18 10:46 12/06/18 10:46 12/06/18 10:46 12/06/18 10:46 - Labs 12/07/18 07:11 12/07/18 07:11 Diabetes panel 12/07/18 Range/Units 07:11 Sodium 138 (136-145) mEq/L Potassium 4.1 (3.5-5.1) mEq/L Chloride 109 H (98-107) mEq/L Carbon Dioxide 21 L (23-29) mEq/L BUN 16 (6-20) mg/dL Creatinine 0.67 (0.60-1.20) mg/dL Glucose 131 H (70-105) mg/dL Calcium 9.1 (8.6-10.3) mg/dL Calcium panel 12/07/18 Range/Units 07:11 Calcium 9.1 (8.6-10.3) mg/dL Pituitary panel 12/07/18 Range/Units 07:11 Sodium 138 (136-145) mEq/L Potassium 4.1 (3.5-5.1) mEq/L Chloride 109 H (98-107) mEq/L Carbon Dioxide 21 L (23-29) mEq/L BUN 16 (6-20) mg/dL Creatinine 0.67 (0.60-1.20) mg/dL Glucose 131 H (70-105) mg/dL Calcium 9.1 (8.6-10.3) mg/dL Adrenal panel 12/07/18 Range/Units 07:11 Sodium 138 (136-145) mEq/L Potassium 4.1 (3.5-5.1) mEq/L Chloride 109 H (98-107) mEq/L Carbon Dioxide 21 L (23-29) mEq/L BUN 16 (6-20) mg/dL Creatinine 0.67 (0.60-1.20) mg/dL Glucose 131 H (70-105) mg/dL Calcium 9.1 (8.6-10.3) mg/dL Consult Discharge Plan - Plan Referrals: Monica Hunter CNP [Primary Care Provider] - Rafa Davis [Partnered Physician] - Prescriptions: Ciprofloxacin [Cipro] 500 mg PO BID 3 Days #6 tablet Oxybutynin [Ditropan] 5 mg PO TID PRN #30 tablet PRN Reason: Bladder frequency from stent Tamsulosin [Flomax] 0.4 mg PO DAILY 14 Days #14 cap.er.24h Oxycodone HCl/Acetaminophen [Percocet 5-325 mg Tablet] 1 each PO Q4-6H PRN 3 Days #10 tablet PRN Reason: pain
--- NOTE | 2018-12-07 13:17 | Discharge Summary ---
- NOTES TO OUTPATIENT PROVIDER Notes to Outpatient Provider: Presented with flank pain and ureteral calculi seen by urology will follow up as outpatient lithotripsy as well as metabolic evaluation for stem prevention discharged home with Percocets tamsulosin and ciprofloxacin Orders not resulted at time of discharge: Pending orders 12/06/18 11:25 Culture,Urine [RM] Stat 12/06/18 12:43 Culture,Blood [BC] Stat Date of Encounter: 12/07/18 Time of Encounter: 13:07 - Discharge Diagnosis (1) Left flank pain Priority: Secondary Status: Acute (2) Obstruction of left ureteropelvic junction (UPJ) due to stone Priority: Primary Status: Acute (3) UTI (urinary tract infection) Priority: Secondary Status: Acute Qualifiers: Urinary tract infection type: site unspecified Hematuria presence: with hematuria Qualified Code(s): N39.0 - Urinary tract infection, site not specified; R31.9 - Hematuria, unspecified Hospital course: Ms. Taylor is a 38 year old female past medical history of kidney stones as well as migraines presented to [facility] ED with complaints of left flank pain underwent CT of abdomen and pelvis revealing 6 mm left proximal ureteral stone at the UPJ with mild hydronephrosis. Patient states she has a history of renal stones last occurring greater than 10 years ago. Urinalysis indicative UTI initiate on antibiotics Rocephin Patient was seen by urology and underwent Cystoscopy left retrograde ureteral left double-J stent placement-tolerate procedure well-pain was managed patient did receive IV fluids no fevers no white count patient is ready for discharge. Patient will follow-up with urology discharged with prescriptions of Percocet, tamsulosin, oxybutynin and ciprofloxacin. Per urology-she will follow-up primary care provider as well patient verbalizes understanding - Time Spent with Patient Total time spent providing and/or coordinating discharge services: - Discharge Medications Prescriptions: New Ciprofloxacin [Cipro] 500 mg PO BID 3 Days #6 tablet Oxybutynin [Ditropan] 5 mg PO TID PRN #30 tablet PRN Reason: Bladder frequency from stent Tamsulosin [Flomax] 0.4 mg PO DAILY 14 Days #14 cap.er.24h Oxycodone HCl/Acetaminophen [Percocet 5-325 mg Tablet] 1 each PO Q4-6H PRN 3 Days #10 tablet PRN Reason: pain No Action Propranolol [Inderal] 10 mg PO DAILY Minocycline HCl 100 mg PO DAILY PRN PRN Reason: Acne Home Medications: Minocycline HCl 100 mg PO DAILY PRN 12/06/18 [History] Propranolol [Inderal] 10 mg PO DAILY 12/06/18 [History] Ciprofloxacin [Cipro] 500 mg PO BID 3 Days #6 tablet 12/07/18 [Rx] Oxybutynin [Ditropan] 5 mg PO TID PRN #30 tablet 12/07/18 [Rx] Oxycodone HCl/Acetaminophen [Percocet 5-325 mg Tablet] 1 each PO Q4-6H PRN 3 Days #10 tablet 12/07/18 [Rx] Tamsulosin [Flomax] 0.4 mg PO DAILY 14 Days #14 cap.er.24h 12/07/18 [Rx] Allergies/Adverse Reactions: Allergy/AdvReac Type Severity Reaction Status Date / Time Erythromycin Base Allergy See Verified 12/06/18 10:48 Comments Date of admission: 12/06/18 13:29 Primary care physician: Monica Hunter CNP Consults: 12/06/18 12:40 Consult to Urology [CONS] Stat Consulting Provider: [facility] Reason for Consult: 6mm obstructing kidney stone, UTI Call Completed: Yes Discharging clinician: Ceci Topete Anticipated date of discharge: 12/07/18 - Constitutional Vitals: Temp Pulse Resp BP Pulse Ox 98.2 F 81 16 148/91 98 12/07/18 07:56 12/07/18 07:56 12/07/18 07:56 12/07/18 07:56 12/07/18 09:19 Exam: Skin: Free of rash and discoloration. Eyes: Sclera is white. There is no discharge from eyes. ENMT: Oral/pharyngeal mucosa is normal in appearance. There is no discharge from nose or ears. Respiratory: Normal breath sounds with no crackles and wheezes bilaterally. CV: Heart is regular with no gallop or murmur. GI: Abdomen is flat and soft with no palpable mass or visceromegaly. : There is no tenderness in patient's flanks bilaterally. Neuro exam: He has good strength in upper and lower extremities. He has normal eye movements. Psychiatric: He has normal affect. His thought process is appropriate to the situation. - Patient Status Disposition: Home, Self-Care Condition: Undetermined Functional capacity at discharge: independent ambulation - Discharge Instructions Instructions: Urinary Tract Infection in Women (DC) Follow Up With: Monica Hunter CNP [Primary Care Provider] - Rafa Davis [Partnered Physician] - - Diet and Activity Activity: increase activity as tolerated Diet: advance to your usual diet
--- NOTE | 2018-12-07 17:49 | Urology Progress Note ---
Date of Encounter: 12/07/18 Time of Encounter: 11:00 - Assessment and Plan (1) Hydronephrosis, left Status: Acute Assessment and plan: Doing well status post left double-J stent placement on 12/06/2018. Discussed normal expectations with indwelling stent. All questions answered. Plan: I have attached warm scripts to the patient's chart. My office will arrange outpatient stone surgery as well as metabolic evaluation for stone prevention. (2) Bilateral nephrolithiasis Status: Acute (3) Left ureteral calculus Status: Acute Objective Initial Vital Signs Temp Pulse Resp BP Pulse Ox 98.5 F 89 16 166/103 99 12/06/18 10:46 12/06/18 10:46 12/06/18 10:46 12/06/18 10:46 12/06/18 10:46 - Labs 12/07/18 07:11 12/07/18 07:11 Diabetes panel 12/07/18 Range/Units 07:11 Sodium 138 (136-145) mEq/L Potassium 4.1 (3.5-5.1) mEq/L Chloride 109 H (98-107) mEq/L Carbon Dioxide 21 L (23-29) mEq/L BUN 16 (6-20) mg/dL Creatinine 0.67 (0.60-1.20) mg/dL Glucose 131 H (70-105) mg/dL Calcium 9.1 (8.6-10.3) mg/dL Calcium panel 12/07/18 Range/Units 07:11 Calcium 9.1 (8.6-10.3) mg/dL Pituitary panel 12/07/18 Range/Units 07:11 Sodium 138 (136-145) mEq/L Potassium 4.1 (3.5-5.1) mEq/L Chloride 109 H (98-107) mEq/L Carbon Dioxide 21 L (23-29) mEq/L BUN 16 (6-20) mg/dL Creatinine 0.67 (0.60-1.20) mg/dL Glucose 131 H (70-105) mg/dL Calcium 9.1 (8.6-10.3) mg/dL Adrenal panel 12/07/18 Range/Units 07:11 Sodium 138 (136-145) mEq/L Potassium 4.1 (3.5-5.1) mEq/L Chloride 109 H (98-107) mEq/L Carbon Dioxide 21 L (23-29) mEq/L BUN 16 (6-20) mg/dL Creatinine 0.67 (0.60-1.20) mg/dL Glucose 131 H (70-105) mg/dL Calcium 9.1 (8.6-10.3) mg/dL Consult Discharge Plan - Plan Instructions: Urinary Tract Infection in Women (DC) Referrals: Monica Hunter CNP [Primary Care Provider] - Rafa Davis [Partnered Physician] - Prescriptions: Ciprofloxacin [Cipro] 500 mg PO BID 3 Days #6 tablet Oxybutynin [Ditropan] 5 mg PO TID PRN #30 tablet PRN Reason: Bladder frequency from stent Tamsulosin [Flomax] 0.4 mg PO DAILY 14 Days #14 cap.er.24h Oxycodone HCl/Acetaminophen [Percocet 5-325 mg Tablet] 1 each PO Q4-6H PRN 3 Days #10 tablet PRN Reason: pain
== END 2018-12-07 13:27 | disposition home or self-care (01) ==
LOC: 3ANU 10:43 → EMEROOARM 10:43 → 3ANU 13:50
PROVIDERS: ADMIT Student in an Organized Health Care Education/Training Program; ATTEND Student in an Organized Health Care Education/Training Program